=== PATIENT | male | born 1940 | race Caucasian/White ===

== ENCOUNTER 2025-06-21 13:46 | Emergency (ER) | payer MEDICARE, OTHER, SELFPAY ==
[2025-06-21 14:23] VITALS: BP 154/67
[2025-06-21 14:35] LABS: Hematocrit 40.2 % (39.0-52.0); Hemoglobin 13.5 g/dL (13.0-18.0); Mean Corp Hgb Conc. 33.6 g/dL (33.0-37.0); Mean Corpuscular Volume 92.4 fL (80.0-94.0); Nucleated Red Blood Cells % 0 % (-); Platelet Count 163 10^3/uL (130-400); Red Cell Dist. Width 12.9 % (11.5-14.5)
[2025-06-21 15:00] VITALS: BP 121/81
[2025-06-21 15:00] LABS: ALT (SGPT) 21 U/L (0-50); AST (SGOT) 32 U/L (17-59); Albumin 4.5 g/dl (3.5-5.0); Alkaline Phosphatase 87 U/L (38-126); Blood Urea Nitrogen 27 mg/dl (9-20); Calcium 9.3 mg/dl (8.4-10.2); Carbon Dioxide 31 mmol/L (22-30); Chloride 100 mmol/L (98-107); Glucose 165 mg/dl (70-99); Potassium 3.9 mmol/L (3.5-5.1); Sodium 137 mmol/L (135-145); Total Protein 7.2 g/dl (6.3-8.2); eGFR 59.26
--- NOTE | 2025-06-21 15:02 | ED.GENMED ---
History of Present Illness
General
Chief Complaint: Heart Rate Problem
Time Seen by Provider: 06/21/25 15:02
History of Present Illness
History of Present Illness:
FOCUSED PAST MEDICAL HISTORY
- Heart failure, former smoker, cardiovascular disease 'affecting all blood vessels'
REVIEW OF OLD RECORDS
- No old records available for review in [facility]
Note:
CHIEF COMPLAINT(S)
Wheezing and irregular heartbeat.
HISTORY OF PRESENT ILLNESS
The patient is an 85-year-old male with a history of heart failure who presented at his primary care physician for a routine visit and was noted to have wheezing. The primary care physician was concerned about potential heart failure and an
irregular heartbeat but did not obtain an electrocardiogram. The patient was then referred for further evaluation. 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 He is on dual antiplatelet therapy, metoprolol, and
furosemide (LASIX) 20 milligrams twice daily. He is a former smoker, having quit many years ago. The patient has undergone coronary artery bypass graft surgery in 2001. He is scheduled to have vascular surgery to the left lower extremity at [facility] in
the future and is awaiting cardiac clearance with Dr. Ruiz's office in about 3 weeks.
ADDITIONAL HISTORY OBTAINED FROM SOURCES OTHER THAN THE PATIENT
The patient�s reported that he is a vascular path, impacting his whole body.
CHRONIC MEDICAL CONDITIONS SIGNIFICANTLY AFFECTING CARE
Heart failure.
SOCIAL HISTORY
Former smoker, ceased many years ago.
MEDICATIONS
Dual antiplatelet therapy, metoprolol, and furosemide (LASIX) 20 mg twice daily.
PHYSICAL EXAM
General: Alert, no acute distress.
Skin: Warm, dry.
Head: Normocephalic, atraumatic.
Neck: Supple, trachea midline.
Eyes, ears, nose, mouth, and throat: Oral mucosa moist.
Cardiovascular: Normal peripheral perfusion, no edema. Occasional ectopy noted. Room air sats 96%.
Respiratory: Respirations are non-labored. Slightly decreased breath sounds equally
Gastrointestinal: Abdomen nondistended.
Back: Normal range of motion, normal alignment.
Musculoskeletal: Normal range of motion, normal strength.
Neurological: Alert and oriented to person, place, time, and situation, no focal neurological deficit observed.
Psychiatric: Cooperative, appropriate mood & affect.
PLAN
Further evaluation of the patient�s heart function and potential heart failure is required. Consideration for obtaining an electrocardiogram and further cardiac imaging or testing may be warranted based on clinical judgment.
DIFFERENTIAL DIAGNOSIS
The Differential Diagnosis includes, in no particular order and is not limited to:
1. Congestive heart failure
2. Arrhythmia
3. Chronic Obstructive Pulmonary Disease (COPD)
4. Acute coronary syndrome
5. Atrial fibrillation
6. Cardiomyopathy
7. Pulmonary embolism
8. Valvular heart disease
9. Pneumonia
10. Hypertensive heart disease
SUMMARY OF ENCOUNTER
The patient, an elderly male with a history of heart issues, was seen in the emergency department for complaints of congestion, weakness, and feeling burned out. An x-ray performed showed potential pneumonia on the right side, corroborated by the
radiologists concern. Despite these findings, the patients white blood cell count was normal, there was no fever, and oxygen levels were stable. Given his stable vital signs and no alarming signs of severe pneumonia, outpatient management with
antibiotics was deemed appropriate. Due to age and risk factors, it was decided to prescribe a dual antibiotic regimen, switching from Augmentin due to the patients concerns about side effects, to cefdinir and azithromycin. A tablet dose was given
before discharge. The patient is advised to moderate physical activity and avoid overexertion.
DISPOSITION
Discharge.
ASSESSMENT
Possible right-sided pneumonia, managed effectively on an outpatient basis given stable clinical parameters and absence of severe symptoms.
EMERGENCY TREATMENTS ADMINISTERED
An oral dose of azithromycin.
MANAGEMENT OF THE PATIENTS CARE WAS DISCUSSED WITH
Communication was made with Dr. Ruiz to facilitate a follow-up.
PLAN
Initiate treatment with cefdinir and azithromycin. Monitor symptoms closely for any severe changes such as fever, persistent vomiting, or decreased oxygen saturation. The patient was advised to rest, avoiding overexertion, while maintaining moderate
activity.
PATIENT EDUCATION AND COUNSELING
Discussed the nature of potential side effects of antibiotics and differentiated side effects from true allergies. Counseling on recognizing symptoms that would necessitate returning to the ER was provided, including signs of severe vomiting or
decreased oxygen levels. Advised to maintain moderate activity and avoid strenuous tasks.
FOLLOW-UP INSTRUCTIONS
Contact Dr. Ruiz for follow-up and ensure consultation regarding outpatient care.
MEDICATION RECONCILIATION
Prescriptions for cefdinir and azithromycin were processed, with an oral dose provided prior to discharge.
MEDICAL DECISION MAKING
-Complexity of Data Reviewed: Chronic conditions affecting care include heart failure with possible pneumonia. Differential diagnosis considered includes congestive heart failure, pneumonia, and COPD.
-Data:
Category 1
Clinical information obtained directly from the patient and via review of previous records regarding allergies and prior antibiotic treatments.
Category 2
My independent interpretation of the chest x-ray concurred with the radiologists suspicion of right-side pneumonia.
Category 3
Management discussed with Dr. Ruiz, the patients primary care physician, to ensure continuity of care and follow-up arrangements.
-Risk:
Consideration of Admission/Observation: Escalation of care including admission/observation was considered given the complexity and risk of the patients presenting complaint, exam findings, and their underlying comorbidities. However, ultimately it
was determined the patient is safe for outpatient management with close follow-up. Reasoning: Work-up reassuring, does not reveal any acute life/organ-threatening processes, symptoms well controlled upon reevaluation, reexamination is reassuring,
vitals stable, patient agreeable with discharge, reliable for follow-up.
DIAGNOSIS
Possible pneumonia, unspecified organism (ICD-10: J18.9)
RADIOLOGY
- Chest x-ray suggest mild prominence right middle greater than left lower pulmonary vasculature.
EKG
- Sinus, 69, frequent PVCs, old inferior Q waves, poor R wave progression
LABS
- CBC unremarkable, chemistries relatively unremarkable, BNP 4470, troponin 0.025
Phy Exam
Physical Exam
Physical Exam:
See HPI
Course
Orders/Labs/Results
Orders:
Orders
06/21/25 13:48
EKG [Electrocardiogram (*1)] Urgent
Reason for Study: Atrial Fibrillation
06/21/25 13:49
EKG- Treatment ONCE
06/21/25 14:00
CXR2 [CR Chest - 2 Views ] Urgent
Comment:
Reason For Exam: weakness
06/21/25 14:08
Complete Blood Count/With Diff Urgent
Comprehensive Metabolic Panel Urgent
Magnesium Urgent
Comment: ADD ON
NT-proBNP Urgent
TSH Reflex To Free T4 Urgent
Comment: ADD ON
Troponin I Urgent
06/21/25 15:05
Add On- LAB Urgent
Tests Added?: magnesium
06/21/25 15:11
Add On- LAB Urgent
Tests Added?: tsh reflex fT4
06/21/25 15:43
Amoxicillin 875 mg/Clav 125 mg [Augmentin 875 mg/125 mg] 1 tablet PO NOW STA
Azithromycin [Zithromax] 500 mg PO NOW STA
06/21/25 15:50
Cefdinir [Omnicef] 300 mg PO NOW STA
Abnormal Lab Results
06/21/25
14:08
RBC 4.35 L 10^6/uL
(4.70-6.10)
MPV 11.3 H fL
(7.4-10.4)
Absolute Lymphs (auto) 0.9 L 10^3/uL
(1.2-3.4)
Absolute Monos (auto) 0.7 H 10^3/uL
(0.1-0.6)
Lymphocytes % 11.4 L %
(20.5-51.1)
Carbon Dioxide 31 H mmol/L
(22-30)
BUN 27 H mg/dl
(9-20)
Glucose 165 H mg/dl
(70-99)
06/21/25 14:08
06/21/25 14:08
Vital Signs
Initial and Last Documented VS:
Initial Vital Signs
Temp Pulse Resp Pulse Ox
36.8 C 67 16 98
06/21/25 13:55 06/21/25 13:55 06/21/25 13:55 06/21/25 13:55
Last Documented Vital Signs
Temp Pulse Resp BP Pulse Ox
36.8 C 78 21 154/67 100
06/21/25 13:55 06/21/25 14:30 06/21/25 14:30 06/21/25 14:23 06/21/25 15:04
*Pulse Oximetry
SaO2: 100
Oxygen Mode of Delivery: Room air
Patient hypoxic: no
*Critical Care Note
Total Time (30-74mins, 75-104mins- exclusive of procedures): Not Applicable
ED Attending Note
-
Portions of this chart may have been created with voice recognition software.� Occasional wrong word or��sound alike� substitutions may have occurred due to the inherent limitations of voice recognition software.
Discharge Plan
Departure
Patient Disposition: Home (Routine Discharge)
Date of Disposition: 06/21/25
Time of Disposition: 15:55
Patient with high blood pressure during this ER visit?: Yes
Discharge Problem:
Pneumonia
Instructions: Pneumonia in adults (DC), BLOOD PRESSURE
Prescriptions:
New
cefdinir 300 mg capsule
300 mg PO BID Qty: 14 0RF
azithromycin [Zithromax] 250 mg tablet
250 mg PO DAILY Qty: 4 0RF
Activity Restrictions/Additional Instructions:
Next dose of antibiotics tomorrow morning. Follow-up with your primary care doctor. Your chest x-ray shows signs of pneumonia in the right perihilar region. Your white blood cell count is normal. Your BNP is elevated at 4470 as can commonly be
seen with somebody with heart failure. Continue Lasix. Potassium and magnesium levels were normal. On the EKG, you are not in atrial fibrillation but you do have a lot of ventricular ectopy/PVCs.
Interventions
Interventions:
*Risk Screen - Suicide Last Done: 06/21/25 13:55
*General Assessment Last Done: 06/21/25 13:55
*Neglect/Abuse Screening Last Done: 06/21/25 13:55
Discharge Date and Time
Print Language: THAI
[2025-06-21 15:11] LABS: Troponin I 0.025 ng/ml
[2025-06-21 15:23] LABS: Magnesium 2.3 mg/dl (1.6-2.3)
[2025-06-21 15:32] VITALS: BP 141/54
[2025-06-21 16:00] VITALS: BP 133/47
[2025-06-21] MEDS: ZITHROMAX 500 MG PO (16:20)
[2025-06-21] MEDS: OMNICEF 300 MG PO (16:20)
== END 2025-06-21 16:38 | disposition home or self-care (01) ==
LOC: EMR 13:46
PROVIDERS: Emergency Medicine; EMERGENCY PHYSICIAN Emergency Medicine; FAMILY PHYSICIAN Family Medicine
DX: J18.9 Pneumonia, unspecified organism (principal); I49.3 Ventricular premature depolarization; I25.10 Atherosclerotic heart disease of native coronary artery without angina pectoris; I50.9 Heart failure, unspecified; Z79.899 Other long term (current) drug therapy; Z87.891 Personal history of nicotine dependence; Z79.02 Long term (current) use of antithrombotics/antiplatelets; Z95.1 Presence of aortocoronary bypass graft
CPT/HCPCS: 99285; 71046; 80053; 83735; 83880; 84443; 84484; 85025; 93005